=== PATIENT | female | born 1950 | race Caucasian/White ===

== ENCOUNTER 2017-03-03 15:47 | Observation (INO) | payer OTHER ==
[2017-03-03] MEDS ORDERED: NITROSTAT SL PRN (16:08)
[2017-03-03 16:49] LABS: BASOPHILS # (AUTO) 0.1 X10^3/uL (0.0-0.1); BASOPHILS % (AUTO) 0.7 % (0.2-1.0); EOSINOPHILS # (AUTO) 0.2 x10^3/uL (0.0-0.2); EOSINOPHILS % (AUTO) 1.8 % (0.9-2.9); HEMATOCRIT 36.4 % (36.0-47.0); HEMOGLOBIN 12.2 g/dL (12.0-16.0); LYMPHOCYTES # (AUTO) 2.1 X10^3/uL (1.3-2.9); LYMPHOCYTES % (AUTO) 23.1 % (21.0-51.0); MEAN CORPUSCULAR HEMOGLOBIN 26.4 pg (27.0-34.0); MEAN CORPUSCULAR HGB CONC 33.7 g/dL (33.0-35.0); MEAN CORPUSCULAR VOLUME 78.5 fL (80.0-100.0); MEAN PLATELET VOLUME 7.9 fL (7.4-11.0); MONOCYTES # (AUTO) 0.5 x10^3/uL (0.3-0.8); MONOCYTES % (AUTO) 5.9 % (0.0-13.0); NEUTROPHILS # (AUTO) 6.3 x10^3/uL (2.2-4.8); NEUTROPHILS % (AUTO) 68.5 % (42.0-75.0); PLATELET COUNT 244 X10^3/uL (150.0-450.0); RED BLOOD COUNT 4.63 X10^6/uL (3.5-5.4); RED CELL DISTRIBUTION WIDTH 15.6 % (11.6-16.5); WHITE BLOOD COUNT 9.3 X10^3/uL (3.6-10.0)
[2017-03-03] MEDS: ASPIRIN PO SCH (16:50)
[2017-03-03] MEDS: LASIX IVP SCH ×2 (16:50→20:50)
[2017-03-03 17:04] LABS: ALANINE AMINOTRANSFERASE 20 Units/L (12-78); ALBUMIN 3.5 g/dL (3.4-5.0); ALKALINE PHOSPHATASE 84 Units/L (46-116); ASPARTATE AMINO TRANSFERASE 13 Units/L (15-37); BLOOD UREA NITROGEN 12 mg/dL (7-18); CALCIUM 8.9 mg/dL (8.5-10.1); CARBON DIOXIDE 30.9 mmol/L (21-32); CHLORIDE 102 mmol/L (98-107); CREATININE 0.59 mg/dL (0.55-1.02); MAGNESIUM 1.8 mg/dL (1.7-2.9); SODIUM 139 mmol/L (136-145); eGFR BLACK RACES > 60 (>60); eGFR NON BLACK RACES > 60 (>60)
[2017-03-03 17:17] LABS: CKMB % 1.7 % (<4); CREATINE KINASE 58 Units/L (26-192); CREATINE KINASE MB < 1.0 ng/mL (0-4.0); TROPONIN I < 0.02 ng/mL (0-1.5)
[2017-03-03 17:45] LABS: BILIRUBIN,URINE NEGATIVE (NEGATIVE); BLOOD/HEMOGLOBIN,URINE NEGATIVE (NEGATIVE); GLUCOSE, URINE NEGATIVE (NEGATIVE); KETONES,URINE NEGATIVE (NEGATIVE); LEUKOCYTE ESTERASE ,URINE NEGATIVE (NEGATIVE); NITRITES,URINE NEGATIVE (NEGATIVE); PROTEIN,URINE NEGATIVE (NEGATIVE); UROBILINOGEN,URINE NORMAL (NORMAL)
[2017-03-03 17:57] LABS: APPEARANCE,URINE CLEAR (CLEAR); BACTERIA,URINE TRACE /HPF (NEGATIVE); COLOR,URINE PALE YELLOW (YELLOW); RBC,URINE NONE SEEN /HPF (NEGATIVE); SQUAMOUS EPITHELIAL CELL,UR RARE /HPF (NEGATIVE)
[2017-03-03] MEDS ORDERED: NORCO 5/325 MG TAB PO PRN (18:53)
[2017-03-03] MEDS ORDERED: MORPHINE SULFATE INJ 2 MG INJ IVP PRN (18:53)
[2017-03-03] MEDS ORDERED: TYLENOL 325 MG TAB PO PRN (18:53)
[2017-03-03] MEDS: NYSTATIN POWDER TOP SCH (19:00)
--- NOTE | 2017-03-03 19:18 | RAD ---
Examination: Portable AP chest History: CHF, chest pain Findings: Normal transverse diameter of the heart with clear lungs and pleural spaces. Impression: No acute or significant abnormality demonstrated. Reported By:
[2017-03-03 20:34] LABS: CKMB % 1.9 % (<4); CREATINE KINASE 54 Units/L (26-192); CREATINE KINASE MB < 1.0 ng/mL (0-4.0); TROPONIN I < 0.02 ng/mL (0-1.5)
[2017-03-03] MEDS ORDERED: POTASSIUM CHL 40 MEQ/NS 0.45% 500 ML IV PRN (22:28)
[2017-03-03] MEDS ORDERED: MAG-OX TAB PO PRN (22:28)
[2017-03-03] MEDS ORDERED: POTASSIUM CHL 60 MEQ/NS 0.45% 500 ML IV PRN (22:28)
[2017-03-03] MEDS ORDERED: POTASSIUM CHLORIDE LIQ 20 MEQ UDC PO PRN (22:28)
[2017-03-03] MEDS ORDERED: K-RIDER 10 MEQ/NS 100 ML 10 MEQ/100 ML BAG IV PRN (22:28)
[2017-03-03] MEDS ORDERED: MAGNESIUM SULFATE 1 GM/100 mL PREMIX 1 GM/100 ML BAG IV PRN (22:28)
[2017-03-03] MEDS: K-LYTE EFFERVESCENT PO PRN (23:10)
[2017-03-04 00:57] LABS: CREATINE KINASE 51 Units/L (26-192); CREATINE KINASE MB < 1.0 ng/mL (0-4.0); TROPONIN I < 0.02 ng/mL (0-1.5)
[2017-03-04] MEDS: NYSTATIN POWDER TOP SCH ×3 (04:50→21:05)
[2017-03-04 05:14] LABS: BASOPHILS # (AUTO) 0.1 X10^3/uL (0.0-0.1); BASOPHILS % (AUTO) 0.7 % (0.2-1.0); EOSINOPHILS # (AUTO) 0.2 x10^3/uL (0.0-0.2); EOSINOPHILS % (AUTO) 1.8 % (0.9-2.9); HEMATOCRIT 36.3 % (36.0-47.0); HEMOGLOBIN 12.2 g/dL (12.0-16.0); LYMPHOCYTES # (AUTO) 2.8 X10^3/uL (1.3-2.9); LYMPHOCYTES % (AUTO) 28.3 % (21.0-51.0); MEAN CORPUSCULAR HEMOGLOBIN 26.3 pg (27.0-34.0); MEAN CORPUSCULAR HGB CONC 33.5 g/dL (33.0-35.0); MEAN CORPUSCULAR VOLUME 78.4 fL (80.0-100.0); MEAN PLATELET VOLUME 8.1 fL (7.4-11.0); MONOCYTES # (AUTO) 0.6 x10^3/uL (0.3-0.8); MONOCYTES % (AUTO) 5.7 % (0.0-13.0); NEUTROPHILS # (AUTO) 6.3 x10^3/uL (2.2-4.8); NEUTROPHILS % (AUTO) 63.5 % (42.0-75.0); PLATELET COUNT 221 X10^3/uL (150.0-450.0); RED BLOOD COUNT 4.63 X10^6/uL (3.5-5.4); RED CELL DISTRIBUTION WIDTH 15.4 % (11.6-16.5); WHITE BLOOD COUNT 9.9 X10^3/uL (3.6-10.0)
[2017-03-04 05:27] LABS: ALANINE AMINOTRANSFERASE 20 Units/L (12-78); ALBUMIN 3.5 g/dL (3.4-5.0); ALKALINE PHOSPHATASE 79 Units/L (46-116); ASPARTATE AMINO TRANSFERASE 14 Units/L (15-37); BLOOD UREA NITROGEN 11 mg/dL (7-18); CALCIUM 8.7 mg/dL (8.5-10.1); CARBON DIOXIDE 33.5 mmol/L (21-32); CHLORIDE 99 mmol/L (98-107); CHOL/HDL RATIO 5.1 (0.0-5.0); CHOLESTEROL 153 mg/dL (0-200); CREATININE 0.65 mg/dL (0.55-1.02); HDL CHOLESTEROL 30 mg/dL (40-60); MAGNESIUM 1.8 mg/dL (1.7-2.9); SODIUM 136 mmol/L (136-145); TOTAL PROTEIN 6.9 g/dL (6.4-8.2); TRIGLYCERIDES 172 mg/dL (0-150); eGFR BLACK RACES > 60 (>60); eGFR NON BLACK RACES > 60 (>60)
[2017-03-04 06:41] VITALS: BMI 48.4
--- NOTE | 2017-03-04 07:26 | RAD ---
Examination: Portable AP chest History: CHF chest pain Comparison reference 03/03/2017. Findings:Continued normal heart size with clear lungs and pleural spaces. Impression: No significant change or acute abnormality demonstrated. Reported By:
[2017-03-04] MEDS: K-LYTE EFFERVESCENT PO PRN (07:56)
[2017-03-04] MEDS: ASPIRIN PO SCH (08:06)
[2017-03-04] MEDS ORDERED: NORCO 5/325 MG TAB PO PRN (09:57)
[2017-03-04] MEDS ORDERED: ALENDRONATE SODIUM PO SCH (10:00)
[2017-03-04] MEDS: LIPITOR TAB 40 MG PO SCH (10:15)
[2017-03-04] MEDS: LASIX PO SCH (10:45)
[2017-03-04] MEDS: NEURONTIN CAP 300 MG PO SCH ×3 (10:45→21:05)
[2017-03-04] MEDS: LOPRESSOR TAB 50 MG PO SCH ×2 (11:12→21:05)
--- NOTE | 2017-03-04 11:19 | DR.UPDATE ---
H&P Update History and Physical Update: WAS SEEN IN THE OFFICE ON 03/03/17. A H&P WAS COMPLETED PRIOR TO ADMISSION. PATIENT HAS BEEN SEEN AND EXAMINED WITH NO CHANGES NOTED TO H&P. Changes noted: NO Yes with the following:
[2017-03-04] MEDS ORDERED: FLOMAX PO SCH (21:00)
[2017-03-04] MEDS ORDERED: KLONOPIN TAB 1 MG PO SCH (21:00)
[2017-03-04] MEDS ORDERED: DESYREL PO SCH (21:00)
[2017-03-05] MEDS: NEURONTIN CAP 300 MG PO SCH (05:00)
[2017-03-05 05:28] LABS: BASOPHILS # (AUTO) 0.1 X10^3/uL (0.0-0.1); BASOPHILS % (AUTO) 0.7 % (0.2-1.0); EOSINOPHILS # (AUTO) 0.2 x10^3/uL (0.0-0.2); EOSINOPHILS % (AUTO) 2.4 % (0.9-2.9); HEMATOCRIT 37.9 % (36.0-47.0); HEMOGLOBIN 12.6 g/dL (12.0-16.0); LYMPHOCYTES # (AUTO) 2.7 X10^3/uL (1.3-2.9); LYMPHOCYTES % (AUTO) 29.6 % (21.0-51.0); MEAN CORPUSCULAR HEMOGLOBIN 26.6 pg (27.0-34.0); MEAN CORPUSCULAR HGB CONC 33.4 g/dL (33.0-35.0); MEAN CORPUSCULAR VOLUME 79.6 fL (80.0-100.0); MEAN PLATELET VOLUME 8.1 fL (7.4-11.0); MONOCYTES # (AUTO) 0.6 x10^3/uL (0.3-0.8); NEUTROPHILS # (AUTO) 5.6 x10^3/uL (2.2-4.8); NEUTROPHILS % (AUTO) 61.3 % (42.0-75.0); PLATELET COUNT 240 X10^3/uL (150.0-450.0); RED BLOOD COUNT 4.76 X10^6/uL (3.5-5.4); RED CELL DISTRIBUTION WIDTH 15.6 % (11.6-16.5); WHITE BLOOD COUNT 9.2 X10^3/uL (3.6-10.0)
[2017-03-05 05:49] LABS: ALANINE AMINOTRANSFERASE 20 Units/L (12-78); ALBUMIN 3.3 g/dL (3.4-5.0); ALKALINE PHOSPHATASE 81 Units/L (46-116); ASPARTATE AMINO TRANSFERASE 11 Units/L (15-37); BLOOD UREA NITROGEN 16 mg/dL (7-18); CALCIUM 8.6 mg/dL (8.5-10.1); CARBON DIOXIDE 33.4 mmol/L (21-32); CHLORIDE 101 mmol/L (98-107); COR CA(FOR HYPOALB) 9.2 mg/dL (8.5-10.1); CREATININE 0.77 mg/dL (0.55-1.02); SODIUM 142 mmol/L (136-145); TOTAL PROTEIN 6.9 g/dL (6.4-8.2); eGFR BLACK RACES > 60 (>60); eGFR NON BLACK RACES > 60 (>60)
[2017-03-05] MEDS: LASIX PO SCH (08:32)
[2017-03-05] MEDS: ASPIRIN PO SCH (08:32)
[2017-03-05] MEDS: LOPRESSOR TAB 50 MG PO SCH (08:32)
[2017-03-05] MEDS: LIPITOR TAB 40 MG PO SCH (08:32)
[2017-03-05 10:13] VITALS: BP 129/67
--- NOTE | 2017-03-07 11:03 | PCM.PROG ---
Progress Note - Progress Note for Day of Date: 03/04/17 - Subjective Subjective: WAS ADMITTED FOR CHF AND CHEST PAIN. TODAY, SHE CONTINUES WITH COMPLAINTS OF SHORNTESS OF BREATH AND GENERALIZED WEAKNESS. SHE DENIES CHEST PAIN AT THE CURRENT TIME. PATIENT REPORTS JUST NOW RETURNING TO BED FROM AMBULATING TO THE BATHROOM. SHE REPORTS THAT SHORNTESS OF BREATH IS WORSE ON EXERTION. SHE ALSO REPORTS DIFFICULTY SLEEPING AT NIGHT. ON EXAMINATION , HEART IS REGULAR IN RATE AND RHYTHM. LUNG SOUNDS ARE DIMINISHED THROUGHOUT. SHE IS CURRENTLY UTILIZING OXYGEN AT 2L/MIN VIA NASAL CANNULA. ABDOMEN IS ROUND , SOFT, AND NON-TENDER WITH NORMAL BOWEL SOUNDS NOTED IN ALL QUADRANTS. THERE IS GOOD MOVEMENT NOTED TO ALL EXTREMITIES. THERE IS 2+ PITTING EDEMA NOTED TO BILATERAL LOWER EXTREMITIES. HER VITAL SIGNS THIS MORNING ARE 98.3-101-17-97%- 135/77. ABNORMAL LAB VALUES INCLUDE THE FOLLOWING: POTASSIUM 3.4, CARBON DIOXIDE 33.5, GLUCOSE 110, AST 14, A/G RATIO 1.0, TRIGLYCERIDES 172, HD CHOLESTEROL 30. CARDIAC ENZYMES HAVE BEEN WITHIN NORMAL LIMITS. MOST RECENT EKG REPORTS SINUS RHYTHM WITH HR 89. CHEST XRAY REPORTS NO ACUTE ABNORMALITY. WE PLAN TO CONTINUE TO MONITOR PATIENT. WE WILL ADMINISTER LASIX 40MG IV DAILY AND START KLONOPRIN 1MG HS. OTHERWISE, WE WILL CONTINUE WITH CURRENT PLAN OF CARE AND FOLLOW UP WITH AM LABS. - Past Medical Family Social History Past Med/Fam/Surg Hx: No changes since H&P Allergies: Allergies pregabalin [From Lyrica] Allergy (Verified 03/03/17 18:06) shellfish derived Allergy (Verified 03/04/17 11:15) bupropion [From Wellbutrin] Adverse Reaction (Verified 03/04/17 11:15) nalbuphine [From Nubain] Adverse Reaction (Verified 03/04/17 11:15) - Review of Systems ROS: No change since H&P - Vital Signs and I&O's Vital Signs: Temperature 97.7 F Pulse Rate [Left Radial] 70 Respiratory Rate 22 Blood Pressure [Left Arm] 129/67 Blood Pressure 148/74 O2 Sat by Pulse Oximetry 98 Intake and Output: Intake & Output 03/04/17 03/05/17 03/06/17 03/07/17 11:59 11:59 11:59 11:59 Intake Total 1000 1170 Output Total 1300 1820 Balance -300 -650 - Physical Exam Oriented: Normal. negative: Time, Person, Place, Not Oriented, Unable to test, Other Eyes: Normal. negative: Blurred Vision, Diplopia, Discharge, Pain, Redness, Photophobia, Other Ear: Normal. negative: Right, Left, Swelling, Ecchymosis, Hemotypanum, Abrasion , Laceration Nose: Normal. negative: Injected, Discharge, Blood, Other Throat: Normal. negative: Tonsillar Hypertrophy, Red, Exudate, Dry, Other Respiratory: Generalized, Diminished Cardiovascular: Edema (BILATERAL LOWER EXTREMITY) : Normal Auscultation: Bowel Sounds: Normal Palpation: Normal Tenderness: Normal Skin: Normal Musculoskeletal: Normal Psychiatric: Normal Mood Description: Calm Affect: Normal Speech Pattern: Clear, Appropriate - Laboratory and Diagnostics Result Diagrams: 03/05/17 04:55 03/05/17 04:55 Labs: Laboratory WBC 9.2 X10^3/uL (3.6-10.0) 03/05/17 04:55 RBC 4.76 X10^6/uL (3.5-5.4) 03/05/17 04:55 Hgb 12.6 g/dL (12.0-16.0) 03/05/17 04:55 Hct 37.9 % (36.0-47.0) 03/05/17 04:55 MCV 79.6 fL (80.0-100.0) L 03/05/17 04:55 MCH 26.6 pg (27.0-34.0) L 03/05/17 04:55 MCHC 33.4 g/dL (33.0-35.0) 03/05/17 04:55 RDW 15.6 % (11.6-16.5) 03/05/17 04:55 Plt Count 240 X10^3/uL (150.0-450.0) 03/05/17 04:55 MPV 8.1 fL (7.4-11.0) 03/05/17 04:55 Neut % 61.3 % (42.0-75.0) 03/05/17 04:55 Lymph % 29.6 % (21.0-51.0) 03/05/17 04:55 [place] % 6.0 % (0.0-13.0) 03/05/17 04:55 Eos % 2.4 % (0.9-2.9) 03/05/17 04:55 Baso % 0.7 % (0.2-1.0) 03/05/17 04:55 Neut # 5.6 x10^3/uL (2.2-4.8) H 03/05/17 04:55 Lymph # 2.7 X10^3/uL (1.3-2.9) 03/05/17 04:55 [place] # 0.6 x10^3/uL (0.3-0.8) 03/05/17 04:55 Eos # 0.2 x10^3/uL (0.0-0.2) 03/05/17 04:55 Baso # 0.1 X10^3/uL (0.0-0.1) 03/05/17 04:55 Absolute Nucleated RBC 0.0 /100WBC 03/05/17 04:55 INR Target Range - 03/03/17 16:34 INR 0.92 (0.8-1.3) 03/03/17 16:34 PTT 28.1 SECONDS (22.9-36.5) 03/03/17 16:34 PTT Comment - 03/03/17 16:34 Sodium 142 mmol/L (136-145) 03/05/17 04:55 Corrected Sodium TNP 03/05/17 04:55 Potassium 3.9 mmol/L (3.5-5.1) 03/05/17 04:55 Chloride 101 mmol/L (98-107) 03/05/17 04:55 Carbon Dioxide 33.4 mmol/L (21-32) H 03/05/17 04:55 BUN 16 mg/dL (7-18) 03/05/17 04:55 Creatinine 0.77 mg/dL (0.55-1.02) 03/05/17 04:55 Est GFR (MDRD) Af Amer > 60 (>60) 03/05/17 04:55 Est GFR (MDRD) Non-Af > 60 (>60) 03/05/17 04:55 Glucose 102 mg/dL (65-99) H 03/05/17 04:55 Calcium 8.6 mg/dL (8.5-10.1) 03/05/17 04:55 Corrected Calcium 9.2 mg/dL (8.5-10.1) 03/05/17 04:55 Magnesium 1.8 mg/dL (1.7-2.9) 03/04/17 04:30 Total Bilirubin 0.30 mg/dL (0.2-1.0) 03/05/17 04:55 AST 11 Units/L (15-37) L 03/05/17 04:55 ALT 20 Units/L (12-78) 03/05/17 04:55 Alkaline Phosphatase 81 Units/L (46-116) 03/05/17 04:55 Creatine Kinase 51 Units/L (26-192) 03/04/17 00:15 CK-MB (CK-2) < 1.0 ng/mL (0-4.0) 03/04/17 00:15 CK/CKMB % Calc 2.0 % (<4) 03/04/17 00:15 Troponin I < 0.02 ng/mL (0-1.5) 03/04/17 00:15 B-Natriuretic Peptide 62.7 pg/mL (0-79) 03/03/17 16:34 Total Protein 6.9 g/dL (6.4-8.2) 03/05/17 04:55 Albumin 3.3 g/dL (3.4-5.0) L 03/05/17 04:55 Globulin 3.6 g/dL (2.5-4.5) 03/05/17 04:55 Albumin/Globulin Ratio 0.9 Ratio (1.1-2.1) L 03/05/17 04:55 Triglycerides 172 mg/dL (0-150) H 03/04/17 04:30 Cholesterol 153 mg/dL (0-200) 03/04/17 04:30 LDL Cholesterol, Calc 89 mg/dL (0-100) 03/04/17 04:30 HDL Cholesterol 30 mg/dL (40-60) L 03/04/17 04:30 Cholesterol/HDL Ratio 5.1 (0.0-5.0) H 03/04/17 04:30 Specimen Type Clean catch urine 03/03/17 17:35 Urine Color Pale yellow (YELLOW) 03/03/17 17:35 Urine Appearance Clear (CLEAR) 03/03/17 17:35 Urine pH 7.0 (5.0 - 8.0) 03/03/17 17:35 Ur Specific [place] 1.010 (1.000-1.030) 03/03/17 17:35 Urine Protein Negative (NEGATIVE) 03/03/17 17:35 Urine Glucose (UA) Negative (NEGATIVE) 03/03/17 17:35 Urine Ketones Negative (NEGATIVE) 03/03/17 17:35 Urine Occult Blood Negative (NEGATIVE) 03/03/17 17:35 Urine Nitrite Negative (NEGATIVE) 03/03/17 17:35 Urine Bilirubin Negative (NEGATIVE) 03/03/17 17:35 Urine Urobilinogen Normal (NORMAL) 03/03/17 17:35 Ur Leukocyte Esterase Negative (NEGATIVE) 03/03/17 17:35 Urine RBC None seen /HPF (NEGATIVE) 03/03/17 17:35 Urine WBC 0-1 /HPF (NEGATIVE) 03/03/17 17:35 Ur Squamous Epith Cells Rare /HPF (NEGATIVE) 03/03/17 17:35 Urine Bacteria Trace /HPF (NEGATIVE) 03/03/17 17:35 Ur Culture Indicated? No/not indicated 03/03/17 17:35 - Plan (1) CHF (congestive heart failure) Status: Acute Qualifiers: Congestive heart failure type: systolic Congestive heart failure chronicity : acute Qualified Code(s): I50.21 - Acute systolic (congestive) heart failure Plan: CONTINUE LASIS 40MG DAILY, CONTINUE SUPPLEMENTAL OXYGEN, MONITOR LABS AND CHEST XRAY (2) Chest pain Status: Acute Qualifiers: Chest pain type: unspecified Qualified Code(s): R07.9 - Chest pain, unspecified Plan: CONTINUE TELEMETRY, CONTINUE SUPPLEMENTAL OXYGEN, CONTINUE TO MONITOR LABS AND CHEST XRAY
== END 2017-03-05 11:35 | disposition home or self-care (01) ==
LOC: ICU 15:47
PROVIDERS: ADMIT Internal Medicine; ATTEND Internal Medicine
DX: I50.21 Acute systolic (congestive) heart failure (principal); R07.89 Other chest pain; I20.8 Other forms of angina pectoris; R06.02 Shortness of breath; J44.1 Chronic obstructive pulmonary disease with (acute) exacerbation; I25.2 Old myocardial infarction; I10 Essential (primary) hypertension; R94.31 Abnormal electrocardiogram [ECG] [EKG]; E87.6 Hypokalemia; Z79.01 Long term (current) use of anticoagulants; Z79.899 Other long term (current) drug therapy
CPT/HCPCS: 36415; 71010; 80053; 80061; 81001; 82550; 82553; 83735; 83880; 84484; 85025; 85610; 85730; 93005; A4216; A4222; G0378; J1940

== ENCOUNTER → 2017-05-12 | Outpatient (CLI) | payer OTHER ==
[2017-05-12 08:36] LABS: CREATININE 0.63 mg/dL (0.55-1.02)
--- NOTE | 2017-05-12 10:59 | CT ---
CT pelvis with contrast Indication: Pain and swelling to inferior right gluteal region with history of previous mass removal in same location Comparison: None available Technique: 5 mm axial images of the pelvis after IV contrast administration with coronal and sagittal reformatted images provided. Findings: No abnormality identified within the visualized liver. Both kidneys demonstrate round hypoa ttenuating lesions consistent with cysts, there is a small calcification within the posterior aspect of the cyst within the upper pole the right kidney on axial image 1. No nephrolithiasis or hydronephr osis. The there is a large cystic lesion inferior to the lower pole the left kidney measuring approxi mately 8.3 x 8.1 cm which does not appear to arise from the left kidney. Upper GI tract demonstrates no evidence of mass or obstruction. There is a right paramedian abdominal wall hernia containing a no nobstructed loop of small bowel seen best on axial image 10. Just inferior to this location is a smal ler hernia also containing a nonobstructed loop of small bowel on axial image 14. Moderate mild scarr ing is noted within the lower anterior abdominal wall. Urinary bladder is unremarkable. Previous hysterectomy is noted. The rectum is normal. Multiple diver ticular noted within distal colon, there is questionable mild thickening of the sigmoid colon for exa mple on coronal image 67 and axial image 35. Small amount pelvic free fluid. No acute osseous abnorma lity. The no appreciable mass or soft tissue swelling identified within either gluteal subcutaneous t issues. No adenopathy within the right or left groin. Impression: 1. Thickening of the sigmoid colon with multiple adjacent diverticula is indeterminate, clinical sherin elation for signs of acute diverticulitis is recommended. 2. Enlarged cystic lesion within the left retroperitoneum/adnexal region is indeterminate, clinical c orrelation is needed for prior surgical resection of the left ovary at time of hysterectomy. An ovari an cyst or peritoneal inclusion cyst are most likely etiologies as this does not appear to arise from the left kidney. 3. Two small right paramedian ventral abdominal wall hernias containing nonobstructed loops of small bowel. 4. No evidence of mass or localizing fluid collection within either gluteal soft tissues. 5. Refer to above for other incidental findings. Reported By:
== END ==
LOC: RAD 07:57
PROVIDERS: ATTEND Internal Medicine
DX: M25.551 Pain in right hip (principal); R10.31 Right lower quadrant pain
CPT/HCPCS: 36415; 72193; 82565; 84520

== ENCOUNTER 2019-04-14 18:11 | Observation (INO) ==
[2019-04-14 18:16] VITALS: BMI 48.4
--- NOTE | 2019-04-14 18:25 | DR.CP ---
HPI Time Seen Time Seen by Provider: 04/14/19 18:18 PCP Primary Care Physician: IKE HPI Comment HPI Comment: 69 yo cf w/ pmh chf, cad, htn presents w/ CP onset midnight last night. Diffuse, tight in quality, non radiating a/w increasing SOB. + increasing chronic generalized edema. Recently treated by pcp for uri sx's w/ oral abx and steroid burst. Has a prev hx of home o2 dependent copd. Denies syncope, f/c, n/v, palpitations, current sputum production. Complaint Chief Complaint:: PT. C/O UNEASINESS TO CHEST, BODY ACHES DURING THE NIGHT. PT. STATES SHE HAS HAD A COLD AND HAS BEEN TAKING ANTIBIOTICS AND STERIODS. PT. STATES INCREASING CHEST DISCOMFORT LATER THIS AFTERNOON. PT. SAYS HER B/P HAS BEEN ELEVATED FOR THE PAST 2 DAYS. Reviewed Nurses Notes Review: Yes Source History Provided: Patient Mode of Arrival Mode of Arrival: Ambulatory Timing Onset of Chief Complaint: 04/13/19 Context Cardiac Risk Factors: HTN and Diabetes; denies Smoker and Cocaine PE Risk Factors: denies Recent Trauma/Surgery and BCP's History of: Similar pain in the past and [place]; denies Aspirin in last 24 hours Prehospital Care: None Severity Severity: Mild Associated Signs and Symptoms Associated Signs and Symptoms: Shortness of Breath; denies Palpitations, Diaphoresis, Abdominal Pain, Nausea/Vomiting, Calf Pain/Swelling and Chest Rash PMH PMH Past Medical History: Yes Past Medical History: Arthritis, CHF, COPD, Coronary Artery Disease, GERD, Hypertension and [place] Past Surgical History: Yes Surgical History: Abdominal Surgery, Appendectomy, Cholecystectomy, TACO MAKER Surgery, Hysterectomy and Ortho Surgery Family History History of Family Medical Conditions: Yes Family Medical History: Diabetes Mellitus, Cancer, [place], Coronary Artery Disease, Heart Failure, Sudden Cardiac and Hypertension Social History Does patient currently use any type of tobacco product: No Have you used tobacco products in the last 12 months: No Type of Tobacco Use: None Does any household member use tobacco: No Alcohol Use: None Do you use any recreational Drugs:: No Lives With: Spouse Lives Where: Home infectious screening In the last 2 months have you had wt loss of >10#?: NO Have you had fever, night sweats or hemotysis?: No Have you traveled outside the country in the last 6 months?: No Isolation: Standard ROS Review of Systems Constitutional: No Symptoms Reported Eyes: No Symptoms Reported ENTM: No Symptoms Reported Respiratoy: Dry Cough and Short of Breath; negative Orthopnea and Hemoptysis Cardiovascular: Chest Pain and Edema; negative Palpitations and Syncope Gastrointestinal/Abdominal: No Symptoms Reported Genitourinary: No Symptoms Reported Neurological: No Symptoms Reported Musculoskeletal: No Symptoms Reported Integumentary: No Symptoms Reported Hematologic/Lymphatic: No Symptoms Reported Endocrine: No Symptoms Reported Psychiatric: No Symptoms Reported All Other Systems: Reviewed and Negative PE Vitals Vitals: Temperature 97.6 F Pulse Rate 59 Respiratory Rate 20 Blood Pressure [Left Arm] 133/63 Blood Pressure 188/82 O2 Sat by Pulse Oximetry 97 General Limitations: No Limitations General Appearance: Alert, In No Apparent Distress, Obese and Other (hypertensive w/ bp in 180 sytolic range ) Head Head Exam: Normal Inspection Eyes Eye exam: Normal Appearance ENT ENT Exam: Normal Exam Chest Chest Inspection: Normal Inspection Respiratory Respiratory Exam: Normal Lung Sounds Bilat Cardiovascular Cardiovascular Exam: Regular Rate and Normal Rhythm Pulse: Normal Edema: Normal Abdominal Exam Abdominal Exam: Normal Inspection, Normal Bowel Sounds and Soft Extremities Extremities Exam: Edema; negative Tenderness and Calf Tenderness Back Back Exam: Normal Inspection Neurologic Neurological Exam: Alert and Oriented X3 Psychiatric Psychiatric Exam: Normal Affect and Normal Mood Skin Skin Exam: Warm, Dry, Intact and Normal Color MDM Additional Information Additional Information Obtained From: Old Records Differential Diagnosis Differential Diagnosis: Angina, Chest Wall Pain, CHF, Costochondritis, Myocardial Infarction and Pleuritis COURSE Treatment Treatment: 69 yo cf w/ hx of home o2 dependent copd, cad/ mi and chf presents w/ CP/ SOB. HTN on arrival w/ sbp in 220 syst range. Improved to 180's w/ rest and w/o intervention. EKG w/ NS ST segment change in inf leads, NSR. DISPLAY ARTIST w/ stable CMG. TNI negative. ASA loaded. NO evidence of acute copd exacerbation or chf decompensation. Do not suspect fluid overload. Will admit to obs for CP r/o acs. D/w Dr Vanegas whom agrees. Education/Counseling Education/Counseling: Patient and Family Educated On: Treatment, Diagnosis, Prognosis and Needs for Follow Up ROR Labs Reviewed Laboratory Results Reviewed?: Yes Result Diagrams: 04/14/19 18:25 04/14/19 18:25 Laboratory: WBC 11.8 X10^3/uL (3.6-10.0) H 04/14/19 18:25 RBC 4.97 X10^6/uL (3.5-5.4) 04/14/19 18:25 Hgb 13.0 g/dL (12.0-16.0) 04/14/19 18:25 Hct 40.0 % (36.0-47.0) 04/14/19 18:25 MCV 80.4 fL (80.0-100.0) 04/14/19 18:25 MCH 26.1 pg (27.0-34.0) L 04/14/19 18: MCHC 32.5 g/dL (33.0-35.0) L 04/14/19 18: RDW 15.4 % (11.6-16.5) 04/14/19 18: Plt Count 267 X10^3/uL (150.0-450.0) 04/14/19 18: MPV 8.2 fL (7.4-11.0) 04/14/19 18:25 Neut % (Auto) 67.6 % (42.0-75.0) 04/14/19 18:25 Lymph % (Auto) 23.9 % (21.0-51.0) 04/14/19 18: [place] % (Auto) 6.9 % (0.0-13.0) 04/14/19 18: Eos % (Auto) 0.9 % (0.9-2.9) 04/14/19: Baso % (Auto) 0.7 % (0.2-1.0) 04/14/19 18:25 Neut # (Auto) 8.0 x10^3/uL (2.2-4.8) H 04/14/19 18:25 Lymph # (Auto) 2.8 X10^3/uL (1.3-2.9) 04/14/19 18:25 [place] # (Auto) 0.8 x10^3/uL (0.3-0.8) 04/14/19 18:25 Eos # (Auto) 0.1 x10^3/uL (0.0-0.2) 04/14/19 18:25 Baso # (Auto) 0.1 X10^3/uL (0.0-0.1) 04/14/19 18:25 Absolute Nucleated RBC 0.1 /100WBC 04/14/19 18:25 Sodium 140 mmol/L (136-145) 04/14/19 18:25 Corrected Sodium TNP 04/14/19 18:25 Potassium 3.8 mmol/L (3.5-5.1) 04/14/19 18:25 Chloride 102 mmol/L (98-107) 04/14/19 18:25 Carbon Dioxide 33.2 mmol/L (21-32) H 04/14/19 18:25 BUN 11 mg/dL (7-18) 04/14/19 18:25 Creatinine 0.65 mg/dL (0.55-1.02) 04/14/19 18:25 Est GFR (MDRD) Af Amer > 60 (>60) 04/14/19 18:25 Est GFR (MDRD) Non-Af > 60 (>60) 04/14/19 18:25 Glucose 86 mg/dL (65-99) 04/14/19 18:25 Calcium 9.2 mg/dL (8.5-10.1) 04/14/19 18:25 Troponin I < 0.02 ng/mL (0-1.5) 04/14/19 18:25 XRAY XRAY Interpreted by: Self XRAY Findings: cxr: cmg, pulm vasc congestion EKG Rate: 59 [place]: Normal Rhythm: NSR Block: RBBB ST: Nonsp Opioid Opioid Risk Tool Total: 0 Total Score Risk Category: Low Risk Copyright: Derrek MCDERMOTT predicting aberrant behaviors Diagnosis Discharge Problem: Chest pain Qualifiers: Chest pain type: unspecified Qualified Code(s): R07.9 - Chest pain, unspecified CHF (congestive heart failure) Qualifiers: Heart failure type: unspecified Heart failure chronicity: chronic Qualified Code(s): I50.9 - Heart failure, unspecified COPD (chronic obstructive pulmonary disease) Qualifiers: COPD type: chronic bronchitis Chronic bronchitis type: simple Qualified Code(s): J41.0 - Simple chronic bronchitis
[2019-04-14 18:31] LABS: BASOPHILS # (AUTO) 0.1 X10^3/uL (0.0-0.1); BASOPHILS % (AUTO) 0.7 % (0.2-1.0); EOSINOPHILS # (AUTO) 0.1 x10^3/uL (0.0-0.2); EOSINOPHILS % (AUTO) 0.9 % (0.9-2.9); LYMPHOCYTES # (AUTO) 2.8 X10^3/uL (1.3-2.9); LYMPHOCYTES % (AUTO) 23.9 % (21.0-51.0); MEAN CORPUSCULAR HEMOGLOBIN 26.1 pg (27.0-34.0); MEAN CORPUSCULAR HGB CONC 32.5 g/dL (33.0-35.0); MEAN CORPUSCULAR VOLUME 80.4 fL (80.0-100.0); MEAN PLATELET VOLUME 8.2 fL (7.4-11.0); MONOCYTES # (AUTO) 0.8 x10^3/uL (0.3-0.8); MONOCYTES % (AUTO) 6.9 % (0.0-13.0); NEUTROPHILS % (AUTO) 67.6 % (42.0-75.0); PLATELET COUNT 267 X10^3/uL (150.0-450.0); RED BLOOD COUNT 4.97 X10^6/uL (3.5-5.4); RED CELL DISTRIBUTION WIDTH 15.4 % (11.6-16.5); WHITE BLOOD COUNT 11.8 X10^3/uL (3.6-10.0)
[2019-04-14 18:45] LABS: BLOOD UREA NITROGEN 11 mg/dL (7-18); CALCIUM 9.2 mg/dL (8.5-10.1); CARBON DIOXIDE 33.2 mmol/L (21-32); CHLORIDE 102 mmol/L (98-107); CREATININE 0.65 mg/dL (0.55-1.02); SODIUM 140 mmol/L (136-145); TROPONIN I < 0.02 ng/mL (0-1.5); eGFR NON BLACK RACES > 60 (>60)
--- NOTE | 2019-04-14 18:51 | RAD ---
HISTORYHypertension, COPDSTUDYChest, PA and lateral [id number] cardiomegaly again noted with grossly clear lungs and pleur al spaces. Radiographic detail is limited by patient habitus. There is no obvious pneumonia or CHF.IM PRESSIONStable cardiomegaly. No acute pulmonary or pleural lesion identified.Electronically signed by : TAPAN DAO (Apr 14, 2019 18:50:21)
[2019-04-14] MEDS ORDERED: ASPIRIN PO ONE (20:16)
[2019-04-14] MEDS ORDERED: ASPIRIN ONE (20:25)
[2019-04-14 21:01] LABS: CKMB % 1.7 % (<4); CREATINE KINASE 58 Units/L (26-192); CREATINE KINASE MB < 1.0 ng/mL (0-4.0); TROPONIN I < 0.02 ng/mL (0-1.5)
[2019-04-14] MEDS ORDERED: LOPRESSOR TAB 50 MG PO ONE (23:00)
[2019-04-15] MEDS: NYSTATIN POWDER TOP SCH ×3 (00:31→20:33)
[2019-04-15 04:59] LABS: CKMB % 1.9 % (<4); CREATINE KINASE 53 Units/L (26-192); CREATINE KINASE MB < 1.0 ng/mL (0-4.0); TROPONIN I < 0.02 ng/mL (0-1.5)
[2019-04-15] MEDS: NEURONTIN CAP 300 MG PO SCH ×3 (05:10→21:24)
[2019-04-15 05:19] LABS: CHOL/HDL RATIO 3.7 (0.0-5.0)
[2019-04-15] MEDS: ASPIRIN PO SCH (08:39)
[2019-04-15] MEDS: LIPITOR TAB 40 MG PO SCH (08:39)
[2019-04-15] MEDS: LOPRESSOR TAB 50 MG PO SCH ×2 (08:40→20:31)
[2019-04-15 08:57] LABS: BASOPHILS # (AUTO) 0.1 X10^3/uL (0.0-0.1); BASOPHILS % (AUTO) 1.2 % (0.2-1.0); EOSINOPHILS # (AUTO) 0.2 x10^3/uL (0.0-0.2); EOSINOPHILS % (AUTO) 1.7 % (0.9-2.9); HEMOGLOBIN 11.8 g/dL (12.0-16.0); LYMPHOCYTES # (AUTO) 2.4 X10^3/uL (1.3-2.9); LYMPHOCYTES % (AUTO) 24.8 % (21.0-51.0); MEAN CORPUSCULAR HEMOGLOBIN 26.1 pg (27.0-34.0); MEAN CORPUSCULAR HGB CONC 32.8 g/dL (33.0-35.0); MEAN CORPUSCULAR VOLUME 79.8 fL (80.0-100.0); MEAN PLATELET VOLUME 8.5 fL (7.4-11.0); MONOCYTES # (AUTO) 0.5 x10^3/uL (0.3-0.8); MONOCYTES % (AUTO) 5.4 % (0.0-13.0); NEUTROPHILS # (AUTO) 6.5 x10^3/uL (2.2-4.8); NEUTROPHILS % (AUTO) 66.9 % (42.0-75.0); PLATELET COUNT 213 X10^3/uL (150.0-450.0); RED BLOOD COUNT 4.51 X10^6/uL (3.5-5.4); RED CELL DISTRIBUTION WIDTH 15.4 % (11.6-16.5); WHITE BLOOD COUNT 9.7 X10^3/uL (3.6-10.0)
[2019-04-15 09:11] LABS: CKMB % 1.8 % (<4); CREATINE KINASE 55 Units/L (26-192); CREATINE KINASE MB < 1.0 ng/mL (0-4.0); TROPONIN I < 0.02 ng/mL (0-1.5)
[2019-04-15 09:24] LABS: ALANINE AMINOTRANSFERASE 16 Units/L (12-78); ALBUMIN 3.1 g/dL (3.4-5.0); ALKALINE PHOSPHATASE 85 Units/L (46-116); ASPARTATE AMINO TRANSFERASE 11 Units/L (15-37); BLOOD UREA NITROGEN 10 mg/dL (7-18); CALCIUM 8.6 mg/dL (8.5-10.1); CARBON DIOXIDE 33.4 mmol/L (21-32); CHLORIDE 102 mmol/L (98-107); COR CA(FOR HYPOALB) 9.3 mg/dL (8.5-10.1); COR NA(FOR HYPERGLY) 141 mmol/L (136-145); CREATININE 0.64 mg/dL (0.55-1.02); SODIUM 140 mmol/L (136-145); TOTAL PROTEIN 6.4 g/dL (6.4-8.2); eGFR NON BLACK RACES > 60 (>60)
[2019-04-15] MEDS ORDERED: NORCO 5/325 MG TAB PO PRN (16:59)
[2019-04-15] MEDS ORDERED: MILK OF MAGNESIA PO PRN (17:01)
[2019-04-15] MEDS ORDERED: COLACE CAP 100 MG PO SCH (21:00)
[2019-04-15] MEDS ORDERED: DESYREL PO SCH (21:00)
[2019-04-15] MEDS ORDERED: FLOMAX PO SCH (21:00)
[2019-04-15] MEDS ORDERED: MILK OF MAGNESIA PO SCH (21:00)
[2019-04-16] MEDS: NEURONTIN CAP 300 MG PO SCH (05:11)
[2019-04-16 05:35] LABS: BASOPHILS % (AUTO) 0.6 % (0.2-1.0); EOSINOPHILS # (AUTO) 0.2 x10^3/uL (0.0-0.2); EOSINOPHILS % (AUTO) 2.3 % (0.9-2.9); HEMATOCRIT 36.7 % (36.0-47.0); HEMOGLOBIN 11.9 g/dL (12.0-16.0); LYMPHOCYTES % (AUTO) 25.3 % (21.0-51.0); MEAN CORPUSCULAR HGB CONC 32.3 g/dL (33.0-35.0); MEAN CORPUSCULAR VOLUME 80.3 fL (80.0-100.0); MEAN PLATELET VOLUME 8.6 fL (7.4-11.0); MONOCYTES # (AUTO) 0.5 x10^3/uL (0.3-0.8); MONOCYTES % (AUTO) 6.8 % (0.0-13.0); NEUTROPHILS # (AUTO) 5.1 x10^3/uL (2.2-4.8); PLATELET COUNT 225 X10^3/uL (150.0-450.0); RED BLOOD COUNT 4.57 X10^6/uL (3.5-5.4); RED CELL DISTRIBUTION WIDTH 15.7 % (11.6-16.5); WHITE BLOOD COUNT 7.9 X10^3/uL (3.6-10.0)
[2019-04-16 05:46] LABS: ALANINE AMINOTRANSFERASE 14 Units/L (12-78); ALBUMIN 3.1 g/dL (3.4-5.0); ALKALINE PHOSPHATASE 92 Units/L (46-116); ASPARTATE AMINO TRANSFERASE 9 Units/L (15-37); BLOOD UREA NITROGEN 12 mg/dL (7-18); CALCIUM 8.8 mg/dL (8.5-10.1); CARBON DIOXIDE 34.8 mmol/L (21-32); CHLORIDE 102 mmol/L (98-107); COR CA(FOR HYPOALB) 9.5 mg/dL (8.5-10.1); CREATININE 0.56 mg/dL (0.55-1.02); SODIUM 139 mmol/L (136-145); TOTAL PROTEIN 6.5 g/dL (6.4-8.2); eGFR NON BLACK RACES > 60 (>60)
--- NOTE | 2019-04-16 07:14 | RAD ---
HISTORYChest painSTUDYCHEST, 1 [id number] heart is enlarged. No congestive heart failure is noted. No acute alveolar infiltrates or pleural effusions are identified. The bony thorax is unremarkable.IMPRESSIONCardiomegaly without congestive heart failureNo infiltratesElectronically signed by: PETRONA TOTH (Apr 16, 2019 07:12:54)
[2019-04-16] MEDS: LOPRESSOR TAB 50 MG PO SCH (08:26)
[2019-04-16] MEDS: ASPIRIN PO SCH (08:26)
[2019-04-16] MEDS: LIPITOR TAB 40 MG PO SCH (08:26)
[2019-04-16] MEDS: NYSTATIN POWDER TOP SCH (08:28)
--- NOTE | 2019-04-16 10:48 | DR.H&P ---
H&P - History & Physical for Day of: H&P Date: 04/14/19 - Chief Complaint Chief Complaint: CHEST PAIN, SOB, BODY ACHES, COUGH - History of Present Illness History of Present Illness: IS A 69 YEAR OLD PATIENT OF OURS WHO PRESENTED TO THE ER WITH COMPLAINTS OF CHEST DISCOMFORT, GENERGALIZED BODY ACHES, A PRODUCTIVE COUGH, AND SHORTNESS OF BREATH. PATIENT HAS BEEN TREATED WITH IV ANTIBIOTICS, STEROIDS, AND BREATHING TREATMENTS FO THE PAST SEVERAL DAYS. SHE ALSO REPORTS GENERALIZED SWELLING. PMH INCLUDES: CHF, COPD, CAD, HTN, GERD, [place]. SHE IX OXYGEN DEPENDENT AT HOME. ON ARRIVAL, VITALS WERE 97.6-60-22-95%-188/82. LABS WERE OBTAINED. ABNORMAL LAB VALUES INLCUDE THE FOLLOWING: WBC 11.8, CARBON DIOXIDE 33.2. CARDIAC ENZYMES WITHIN NORMAL LIMITS. A CHEST XRAY WAS OBTAINED AND REVEALED: Moderate cardiomegaly again noted with grossly clear lungs and pleural spaces. Radiographic detail is limited by patient habitus. There is no obvious pneumonia or CHF. EKG REVEALED: SINUS RHYTHM WITH HR 59. SHE WAS ADMITTED FOR FURTHER EVALUATION AND TREATMENT OF CHEST PAIN, RULE OUT ACUTE NH. WE WILL OBTAIN SERIAL CARDIAC ENZYMES AND EKGS. WE WILL RESUME HER HOME MEDICATIONS. OTHERWISE, WE WILL FOLLOW UP WITH AM LABS AND CONTINUE TO MONITOR. - Past Medical History Past Medical History: [place], Coronary Artery Disease, Hypertension, COPD, GERD, Arthritis, CHF - Past Surgical History Surgical History: Abdominal Surgery, Appendectomy, Cholecystectomy, Hysterectomy, Ortho Surgery, Other - Family History Family Medical History: Diabetes Mellitus, Cancer, [place], Coronary Artery Disease, Heart Failure, Sudden Cardiac , Hypertension - Social History Does patient currently use any type of tobacco product: No Have you used tobacco products in the last 12 months: No Type of Tobacco Use: None Does any household member use tobacco: No Alcohol Use: None Drug Use: None Prescription drug monitoring program results: PDMP was not reviewed - Medications Home Medications: pregabalin [From Lyrica] Allergy (Verified 12/18/17 21:19) shellfish derived Allergy (Verified 12/18/17 21:19) bupropion [From Wellbutrin] Adverse Reaction (Verified 12/18/17 21:19) nalbuphine [From Nubain] Adverse Reaction (Verified 12/18/17 21:19) CONTINUE taking the following medications levalbuterol tartrate [Xopenex HFA] 1 inh INHALATION Q6HR PRN 04/14/19 [History] amoxicillin-pot clavulanate 1 tab PO BID 04/15/19 [History] methylprednisolone See Rx Instructions .ROUTE .COMPLEX 04/15/19 [History] - Review of Systems Constitutional: Weakness, Malaise Eyes: No Symptoms Reported ENT: No Symptoms Reported Respiratory: Cough, Shortness of Breath, SOB with Excertion Cardiovascular: Chest Pain Gastrointestinal: No Symptoms Reported Genitourinary: No Symptoms Reported Musculoskeletal: No Symptoms Reported Skin: No Symptoms Reported Neurological: Weakness - Physical Exam Vital Signs: Temperature 98.6 F Pulse Rate [Left Brachial] 68 Pulse Rate 51 Respiratory Rate 18 Blood Pressure [Right Arm] 140/63 Blood Pressure [Left Arm] 111/56 Blood Pressure 169/79 O2 Sat by Pulse Oximetry 96 Oriented: Normal Eyes: Normal Ear: Normal Nose: Normal Throat: Normal Respiratory: Wheezes Throughout Cardiovascular: Normal. negative: S3, S4, Murmur : Normal Auscultation: Bowel Sounds: Normal Palpation: Normal Tenderness: Normal Skin: Normal Musculoskeletal: Normal Psychiatric: Normal Mood Description: Calm Affect: Normal Speech Pattern: Clear - Assessment/Plan (1) Chest pain, rule out acute myocardial infarction Status: Acute Plan: ADMIT, SERIAL CARDIAC ENZYMES, EKGS, CONTINUE TO MONITOR. (2) COPD (chronic obstructive pulmonary disease) Qualifiers: COPD type: chronic bronchitis Chronic bronchitis type: simple Qualified Code(s): J41.0 - Simple chronic bronchitis Status: Acute Plan: SUPPLEMENTAL OXYGEN, CONTINUE HOME MEDS, CONTINUE TO MONITOR (3) CHF (congestive heart failure) Qualifiers: Heart failure type: unspecified Heart failure chronicity: chronic Qualified Code(s): I50.9 - Heart failure, unspecified Status: Acute - Allergies Allergies/Adverse Reactions: Allergies Allergy/AdvReac Type Severity Reaction Status Date / Time pregabalin [From Lyrica] Allergy Verified 12/18/17 21:19 shellfish derived Allergy Verified 12/18/17 21:19 bupropion [From Wellbutrin] AdvReac Verified 12/18/17 21:19 nalbuphine [From Nubain] AdvReac Verified 12/18/17 21:19
[2019-04-16] MEDS ORDERED: MILK OF MAGNESIA PO SCH (11:38)
[2019-04-16] MEDS ORDERED: COLACE CAP 100 MG PO ONE (11:39)
[2019-04-16 12:55] VITALS: BP 107/56
== END 2019-04-16 12:40 | disposition home or self-care (01) ==
LOC: MED/SURG 18:11 → ER 18:11 → MED/SURG 22:26
PROVIDERS: ADMIT Obstetrics & Gynecology Obstetrics; ATTEND Internal Medicine
DX: I50.9 Heart failure, unspecified; J41.0 Simple chronic bronchitis; R94.31 Abnormal electrocardiogram [ECG] [EKG]; R06.02 Shortness of breath; Z79.899 Other long term (current) drug therapy; R07.89 Other chest pain; I11.0 Hypertensive heart disease with heart failure; Z99.81 Dependence on supplemental oxygen; R60.0 Localized edema; K21.9 Gastro-esophageal reflux disease without esophagitis
CPT/HCPCS: 36415; 71010; 71020; 71045; 71046; 80048; 80053; 80061; 82550; 82553; 84484; 85025; 93005; 93306; 94760; 96365; 99284; A4216; A4222; G0378